=== PATIENT | male | born 1965 | race Caucasian/White ===

== ENCOUNTER 2022-07-23 08:02 | Emergency (ER) | payer OTHER, SELFPAY ==
--- NOTE | ~2022-07-23 | CT_ITS ---
EXAMINATION: CT abdomen pelvis w con DATE: 07/23/2022 10:03 INDICATION: Bilateral lower abdominal pain, nausea, vomiting and diarrhea. TECHNIQUE: Computed tomography (CT) of the abdomen and pelvis was performed with 100 mL Omnipaque-350 intravenous contrast. Automated exposure control and iterative reconstruction technique were employe d. The dose-length product was 356.80 mGy-cm. COMPARISON: None FINDINGS: Lung bases are clear. Heart size is normal. No pericardial or pleural effusion. Somewhat heterogeneou s pattern of diffuse hepatic steatosis. Gallbladder, spleen, pancreas, bilateral adrenal glands and l eft kidney are normal. 5 mm right renal cyst. Normal small bowel and appendix. Mild sigmoid diverticu losis. Inflammatory stranding and focal wall thickening at the proximal sigmoid colon consistent with diverticulitis. Small focus of gas, unclear whether within or peripheral to a diverticulum along the inferior margin of the proximal sigmoid colon which abuts the wall of the bladder. There is diffuse wall thickening of the bladder most prominent where it abuts the focus of gas. No evident gas within bladder to more specifically suggest a fistulous communication. No abscess or free fluid in the abdom en or pelvis. No pathologically enlarged abdominal or pelvic lymphadenopathy. Mild degenerative skele cecilio changes in the spine and bilateral hip and sacroiliac joints. IMPRESSION: 1. Sigmoid diverticulitis with small focus of gas abutting the wall of the bladder, unclear whether w ithin the diverticulum or extraluminal due to microperforation. No no definitive fistulous communicat ion identified however the wall thickening of the bladder does raise some concern. Correlate with uri nalysis. Reviewed, dictated and finalized at location A. T FORMULATOR IMPRESSION: 1. Sigmoid diverticulitis with small focus of gas abutting the wall of the blad hermila, unclear whether within the diverticulum or extraluminal due to microperfor ation. No no definitive fistulous communication identified however the wall thi ckening of the bladder does raise some concern. Correlate with urinalysis.
[2022-07-23 08:05] VITALS: BP 202/88; PULSE 99; RESP 18; TEMP 36.6; O2SAT 99
[2022-07-23 08:54] LABS: Basophils Absolute Auto 0.1 K/mm3 (0.0-0.1); Basophils Percent Auto 0.6 % (0.2-1.2); Eosinophils Absolute Auto 0.1 K/mm3 (0-0.3); Eosinophils Percent Auto 0.6 % (0-4.4); Hematocrit 49.9 % (42.0-52.0); Hemoglobin 16.9 g/dL (14.0-18.0); Immature Granulocyte Absolute 0.04 K/mm3 (0.00-0.031); Immature Granulocyte Percent A 0.4 % (0-0.5); Lymphocytes Absolute Auto 0.86 K/mm3 (0.9-3.2); Lymphocytes Percent Auto 9.3 % (18.3-44.2); Mean Corpuscular HGB Conc 33.9 g/dl (32-36); Mean Corpuscular Hemoglobin 33.2 pg (26-34); Mean Platelet Volume 9.2 fl (7.4-10.4); Monocytes Absolute Auto 0.7 K/mm3 (0.1-0.6); Neutrophils Absolute Auto 7.5 K/mm3 (1.3-6.7); Neutrophils Percent Auto 81.1 % (45.5-73.1); Platelet Count Result 237 k/mm3 (150-375); Red Blood Count 5.09 M/mm3 (4.6-6.20); Red Cell Distribution Width 12.6 % (11.5-14.5); White Blood Count 9.2 K/mm3 (4.5-10.0)
[2022-07-23 09:22] LABS: Alanine Aminotransferase 71 U/L (6-50); Albumin Level 4.9 g/dL (3.5-5.1); Alkaline Phosphatase 88 U/L (38-126); Anion Gap 11 mmol/L (8-16); Aspartate Amino Transferase 95 U/L (17-59); Bilirubin,Total 1.3 mg/dL (0.2-1.3); Blood Urea Nitrogen 5 mg/dL (9-20); Calcium 8.8 mg/dL (8.4-10.2); Carbon Dioxide 23 mmol/L (22-30); Chloride 95 mmol/L (98-107); Estimated CRCL calculation 93 ml/min; Estimated Glomerular Filt Rate > 60; Glucose 148 mg/dL (65-110); Lipase 71 U/L (23-300); Sodium 129 mmol/L (137-145)
[2022-07-23] MEDS: ONDANSETRON INJ 4 MG/2 ML VIAL IV PUSH (09:31)
[2022-07-23] MEDS: SODIUM CHLORIDE 0.9% IV 1,000 ML 999 ML IV CONT ×2 (09:32→11:46)
--- NOTE | 2022-07-23 09:37 | ED.ABDPAIN ---
HPI - Abdominal Pain General Chief Complaint: Abdominal Pain Stated Complaint: abd pain Time Seen by Provider: 07/23/22 08:59 Source: patient Mode of arrival: ambulatory Limitations: no limitations History of Present Illness HPI narrative: Patient is a 56-year-old male who presents to the ED with report of abdominal pain. Patient reports having pain in his left and right lower abdomen since Sunday. He states he has had issues previously with diverticulitis and intermittent abdominal pain, however the pain became more consistent on Sunday. He has not tried anything for the pain. He also reports having nausea, vomiting, diarrhea, decreased appetite, but denies rectal bleeding, hematemesis, fevers, cough or cold symptoms, urinary symptoms. Patient is a daily alcohol drinker, 8-10 beers a day. He has not drank since Sunday. Denies having history of withdrawal seizures. Related Data Allergies Allergy/AdvReac Type Severity Reaction Status Date / Time No Known Allergies Allergy Verified 07/23/22 09:30 Review of Systems Review of Systems: CONSTITUTIONAL: Reports decreased appetite. Denies fever, chills, or sweats. ENT: Denies rhinorrhea, congestion, sore throat. CARDIOVASCULAR: Denies chest pain. RESPIRATORY: Denies cough or dyspnea. GASTROINTESTINAL: Reports right lower and left lower abdominal pain, N/V/D. Denies constipation, rectal bleeding, hematemesis. GENITOURINARY: Denies dysuria or hematuria. All systems reviewed & are unremarkable except as noted in HPI and below PMFSH Past Medical History Medical History (Updated 07/23/22 @ 15:00 by Theresa Ramirez PA-C) History of diverticulitis Surgical History Surgical History (Updated 07/23/22 @ 09:42 by Theresa Ramirez PA-C) No pertinent past surgical history Social History Social History (Updated 07/23/22 @ 09:42 by Theresa Ramirez PA-C) Smoking status: Current every day smoker Alcohol intake: current Alcohol use details: 8-10 beers per day Exam Narrative: GENERAL: Well appearing, well-nourished, non-toxic, in no acute distress. HEAD: Normocephalic, atraumatic. NECK: Supple. No adenopathy, no masses. RESPIRATORY: Airway patent, respirations nonlabored. Clear to auscultation bilaterally, no rales, rhonchi, wheezing. CARDIOVASCULAR: Borderline tachycardic with regular rhythm without murmurs, rubs, or gallops. Radial pulses 2+ and equal bilaterally. ABDOMINAL: Soft, very mild tenderness throughout lower abdomen, nondistended, no hepatosplenomegaly. Normoactive BS. MUSCULOSKELETAL: Moves all extremities. Strength/ROM intact without gross deformities. SKIN: Warm, dry, normal color. No rashes. Mild flushed appearance to face. NEURO: A&O X3. Speech clear. Cranial nerves II-XII grossly intact. Steady gait. No ataxic movements. No significant tremor. PSYCHIATRIC: Appropriate mood and affect. Normal interaction. Course Consultations Consultation #1: Discussed case with Dr. Acevedo, general surgery, reviewed images himself. Advised based on clinical picture, patient will likely do well with outpatient antibiotics and follow-up. Recommended clear liquid diet. Date: 07/23/22 Vital Signs Vital signs: Vital Signs Temperature 97.8 F 07/23/22 08:05 Pulse Rate 99 07/23/22 08:05 Respiratory Rate 18 07/23/22 08:05 Blood Pressure 202/88 H 07/23/22 08:05 Pulse Oximetry 99 07/23/22 08:05 Oxygen Delivery Room Air 07/23/22 08:05 Temperature 97.8 F 07/23/22 08:05 Pulse Rate 64 07/23/22 14:12 Respiratory Rate 18 07/23/22 08:05 Blood Pressure 124/49 L 07/23/22 14:12 Pulse Oximetry 97 07/23/22 14:12 Oxygen Delivery Room Air 07/23/22 08:05 MDM - Abdominal Pain MDM Narrative Medical decision making narrative: Patient presented to ED with 2-day history of lower abdominal pain, N/V/D. Patient hypertensive upon arrival, this did improve throughout ED stay without intervention. Likely component of pain. Patient with
[2022-07-23 10:50] LABS: Influenza A QL RT-PCR Negative (Negative); Influenza B QL RT-PCR Negative (Negative); SARS-CoV-2 RNA PCR Negative
[2022-07-23 11:02] LABS: Add Urine Microscopic? YES; Appearance Urine Clear (Clear); Bilirubin Urine Negative (Negative); Blood Urine Trace-Intact (Negative); Color Urine Light Yellow (Yellow); Glucose Urine UA Negative (Negative); Ketones Urine 1+ mg/dL (Negative); Leukocyte Esterase Ur Negative LEU/UL (Negative); Nitrate Urine Negative (Negative); Protein Urine Negative (Negative); Specific Grav Ur <= 1.005 (1.001-1.035); Urobilinogen Urine 0.2 mg/dL (<2.0); pH Urine 6.5 (5.0-9.0)
[2022-07-23 11:21] LABS: Mucus Urine Rare /lpf; RBC Urine 0-2 /hpf (0-2); Squamous Epithelial Cell Urine Rare /hpf (Few); WBC Urine 0-3 /hpf
[2022-07-23 14:05] LABS: Blood Urea Nitrogen 5 mg/dL (9-20); Calcium 7.7 mg/dL (8.4-10.2); Carbon Dioxide 23 mmol/L (22-30); Estimated CRCL calculation 93 ml/min; Estimated Glomerular Filt Rate > 60; Glucose 111 mg/dL (65-110)
[2022-07-23 14:12] VITALS: BP 124/49; PULSE 64; O2SAT 97
[2022-07-23 14:40] LABS: Anion Gap 7 mmol/L (8-16); Chloride 102 mmol/L (98-107); Potassium 3.8 mmol/L (3.4-5.0); Sodium 132 mmol/L (137-145)
== END 2022-07-23 15:17 | disposition home or self-care (01) ==
PROVIDERS: Emergency Medicine; Emergency Provider Physician Assistant
DX: K57.32 Diverticulitis of large intestine without perforation or abscess without bleeding (principal); Z20.822 Contact with and (suspected) exposure to COVID-19; F17.200 Nicotine dependence, unspecified, uncomplicated
CPT/HCPCS: 36415; 74177; 80048; 80053; 81001; 83690; 85025; 87636; 96365; 96367; 96375; 99284; J0131; J2405; J2543; J7030; Q9967